=== PATIENT | female | born 1990 | race Two or more races ===

== ENCOUNTER 2017-11-18 12:48 | Emergency (ER) | payer OTHER ==
[~2017-11-18] VITALS: Ht 167.6 cm; Wt 66.0 kg
[2017-11-18 12:52] VITALS: BP 148/106
[2017-11-18] MEDS ORDERED: KETOROLAC 30 MG/1 ML IM ONE (13:30)
[2017-11-18] MEDS ORDERED: DIPHENHYDRAMINE 25 MG CAPSULE PO ONE (13:30)
[2017-11-18] MEDS ORDERED: KETOROLAC 30 MG/1 ML ONE (13:40)
[2017-11-18] MEDS ORDERED: DIPHENHYDRAMINE 50 MG CAPSULE ONE (13:40)
== END 2017-11-18 14:09 | disposition home or self-care (01) ==
LOC: ED 14:03
DX: S06.0X0A Concussion without loss of consciousness, initial encounter (principal); G43.909 Migraine, unspecified, not intractable, without status migrainosus; Z88.0 Allergy status to penicillin; W01.0XXA Fall on same level from slipping, tripping and stumbling without subsequent striking against object, initial encounter; Y93.89 Activity, other specified; Y92.098 Other place in other non-institutional residence as the place of occurrence of the external cause; Y99.8 Other external cause status
CPT/HCPCS: 70450; 96372; 99284; J1885; Q0163